=== PATIENT | male | born 1990 | race Asian ===

== ENCOUNTER 2017-10-24 15:25 | Emergency (ER) | payer OTHER ==
[2017-10-24 15:38] VITALS: TEMP 97.9
--- NOTE | 2017-10-24 15:39 | EDPHY ---
H & P Stated Complaint: Skiing accident, shoulder injury and deformity Time Seen by Provider: 10/24/17 15:39 HPI/ROS: HPI: This is a 27-year-old male who presents with Chief Complaint: Skiing accident, shoulder injury and deformity Location: Right shoulder Quality: Injury Duration: Prior to arrival Signs and Symptoms: No bleeding, no radiation, no numbness, no weakness, no tingling, no incontinence, no decreased range of motion, no swelling, + pain, no fever, + deformity Timing: Acute Severity: 03/13 Context: Patient is right-hand dominant, was skiing at [place], when he lost control and balance and landed directly on his right shoulder approximately 1-2 hours prior to arrival. Denies LOC/head injury/neck pain/dizziness/nausea/ vomiting/amnesia. He reports when he fell he felt like something popped out of place in his right shoulder. No prior history of dislocations. Prior reports that the pain was constant, nonradiating in nature and worsened with any movement. Reports he is unable to move his arm at all. He does report that he is able to move his elbow at hands and fingers without any difficulty on the right-hand side. Modifying Factors: en route EMS gave patient 100 mcg of fentanyl with moderate relief of pain Comment: ROS: see HPI Constitutional: No fever, no chills, no weight loss Eyes: No blurred vision Respiratory: No shortness of breath, no cough Cardiovascular: No chest pain Gastrointestinal: No nausea, no vomiting no diarrhea Genitourinary: No dysuria Extremities: No myalgias Neurologic: No weakness, no numbness Skin: No rashes Hematologic: No bruising, no bleeding MEDICAL/SURGICAL/SOCIAL HISTORY: Medical history: Generally healthy. Does not take any regular medications. Surgical history: Denies Social history: Attends college here. CONSTITUTIONAL: Adult male, polite and cooperative, awake and alert, no obvious distress HEENT: Atraumatic and normocephalic. NECK: supple, no midline tenderness, flexion 45 degrees, extension 45 degrees, right and left lateral flexion 45 degrees. No meningismus. Cardiovascular: Normal S1/S2, regular rate, regular rhythm, without murmur rub or gallop. PULMONARY/CHEST: Symmetrical and nontender. no crepitus. Clear to auscultation bilaterally. Good air movement. No accessory muscle usage. ABDOMEN: Soft, nondistended, nontender, no ecchymosis. PELVIC: no pain with rocking; bilateral hips flexion 125 degrees, extension 30 degrees, with no pain internal rotation and no pain external rotation. BACK: No midline tenderness, no paraspinous spasm, deep tendon reflexes 2/2, no pain with straight leg raise, No foot drop. Achilles reflexes are equal bilaterally. Able to walk on heels and toes without difficulty. EXTREMITIES: 2/2 pulses, strength 5/5, right arm held in abduction; unable to touch ipsilateral arm with the arm that is of concern. right SHOULDER: Deformity appreciated with luxation of the humerus to the joint space. No clavicle deformity. Right ELBOW: Full extension to 180, flexion to 150, no tenderness over medial epicondyle, no tenderness over lateral epicondyle, no effusion. Right WRIST: Extension to 70, flexion to 80, radial deviation to 20 degree, ulnar deviation to 30, no scaphoid tenderness, no tenderness over ulnar styloid, no tenderness over radial styloid, no pain with Sumaya test , no pain with Phalen test, no pain with Tinel test DIP/PIP/MCP flexion/ extension intact with good light touch sensation. no deformities, no clubbing, no cyanosis or edema. NEUROLOGICAL: no focal neuro deficits. GCS 15. Light touch sensation intact. SKIN: Warm and dry, no erythema. no rash. Good capillary refill. Source: Patient Exam Limitations: No limitations - Personal History Current Tetanus/Diphtheria Vaccine: Unsure Current Tetanus Diphtheria and Acellular Pertussis (TDAP): Unsure - Medical/Surgical History Hx Asthma: No Hx Chronic Respiratory Disease: No Hx Diabetes: No Hx Cardiac Disease: No Hx Renal Disease: No Hx Cirrhosis: No Hx Alcoholism: No Hx HIV/AIDS: No Hx Splenectomy or Spleen Trauma: No Other PMH: denies - Social History Smoking Status: Never smoked Constitutional: Initial Vital Signs Temperature (C) 36.6 C 10/24/17 15:25 Heart Rate 60 10/24/17 15:25 Respiratory Rate 16 10/24/17 15:25 Blood Pressure 138/98 H 10/24/17 15:25 O2 Sat (%) 99 10/24/17 15:25 O2 Delivery Mode Room Air Allergies/Adverse Reactions: No Known Allergies Allergy (Verified 10/24/17 15:57) Home Medications: Medication Instructions Recorded oxyCODONE/APAP 5/325 [Percocet 1 - 2 tab PO Q4H PRN #10 tab 10/24/17 5/325 (*)] Medical Decision Making - Diagnostics Imaging Results: Imaging Impressions Shoulder X-Ray 10/24/17 15:34 Impression: Anterior dislocation right humeral head. Shoulder X-Ray 10/24/17 16:13 Impression: Unsuccessful reduction. Shoulder X-Ray 10/24/17 16:50 Impression: Successful closed reduction of right shoulder dislocation. Procedures: Procedure: Dislocation reduction. Patient received a right shoulder block using 10 cc of 1% lidocaine. The dislocation of the right shoulder was reduced using Brigid technique without complications. Total attempts x 2. Post reduction the patient's neurovascular exam is normal. Post reduction x-ray demonstrates reduction of the joint to the anatomic position. The procedure was performed by myself. Procedure: Splint placement. A right sling was applied by the Emergency Room cell technician. After application of the splint I returned and re-examined the patient. The splint was adequately immobilizing the joint and distal to the splint the patient's circulation and sensation was intact. ED Course/Re-evaluation: 1540: Right shoulder x-ray and IV Valium 5 mg ordered upon arrival. Anterior dislocation successfully reduced after 2 attempts. Placed in sling, pain control, Ortho follow-up No signs of neurovascular compromise/tenting of skin/compartment syndrome/ extremities and joints examined above and below area of concern and are neurovascularly intact. This patient was seen under the supervision of my secondary supervising physician. I evaluated care for this patient independently. Discussed this patient with Dr. Sloan who did not see the patient. Differential Diagnosis: Differential diagnosis includes but is not limited to brachial plexus injury, shoulder dislocation, clavicle fracture, humerus fracture. - Data Points Medications Given: Discontinued Medications Diazepam (Valium) 5 mg IVP EDNOW ONE Stop: 10/24/17 15:42 Last Admin: 10/24/17 16:05 Dose: 5 mg Departure - Departure Disposition: Home, Routine, Self-Care Clinical Impression: Anterior dislocation of right shoulder Qualifiers: Encounter type: initial encounter Qualified Code(s): S43.014A - Anterior dislocation of right humerus, initial encounter Condition: Good Instructions: Shoulder Dislocation (ED), How to Use a Sling (ED) Additional Instructions: Wear the sling until seen by Orthopedics for follow-up. Do not move your right upper extremity above chest level. Take Tylenol 650 mg every 4 hours and/or Ibuprofen 600 mg every 8 hours with food as needed for pain. Use Percocet every 6 hours as needed for severe/break through pain. Do not use Tylenol and Percocet concomitantly. Apply ice for 30 minutes at a time; 2-3 times per day for the next 1-2 days. Follow up with Orthopedics in 7-10 days at which time they will evaluate and recommend with you if conservative management versus further imaging is indicated. Return to the ER immediately if you experience new or worsening pain, discoloration, numbness, tingling, or any other symptoms that concern you. Referrals: Luiz Marshall MD [Medical Doctor] - As per Instructions Prescriptions: oxyCODONE/APAP 5/325 [Percocet 5/325 (*)] 1 - 2 tab PO Q4H PRN #10 tab PRN Reason: Pain, Severe
[2017-10-24] MEDS ORDERED: DIAZEPAM 5 MG/ML 1 ML SYR IVP ONE (15:41)
[2017-10-24 16:14] VITALS: O2SAT 98
[2017-10-24 17:11] VITALS: BP 141/92; PULSE 72; RESP 18
== END 2017-10-24 17:11 | disposition home or self-care (01) ==
PROC: 0RSJXZZ Reposition Right Shoulder Joint, External Approach (ICD-10-PCS; principal; 2017-10-24)
DX: S43.014A Anterior dislocation of right humerus, initial encounter (principal); V00.321A Fall from snow-skis, initial encounter; Y92.89 Other specified places as the place of occurrence of the external cause; Y99.8 Other external cause status; Y93.23 Activity, snow (alpine) (downhill) skiing, snowboarding, sledding, tobogganing and snow tubing
CPT/HCPCS: 96374; J3360